=== PATIENT | female | born 1955 | race Caucasian/White ===

== ENCOUNTER 2021-02-25 15:47 | Outpatient (REF) | payer OTHER, SELFPAY ==
[2021-02-25 21:52] LABS: HCT 40.3 % (36.0-46.0); HGB 13.2 g/dL (11.2-15.7); MCH 27.3 pg (27.0-33.0); MCHC 32.8 % (32.0-36.0); MCV 83.4 fL (80-95); MPV 10.7 fL (8.0-11.0); Platelet Count 259 10^3/uL (130-400); RBC 4.83 10^6/uL (3.93-5.22); RDW 12.8 % (11.7-14.6); RDW-SD 38.7 fL; WBC 10.77 10^3/uL (4.4-10.8)
[2021-02-25 23:02] LABS: Ferritin 29 ng/mL (8-252); Magnesium 1.3 mg/dL (1.8-2.4); TSH (W/Ref FT4) < 0.01 uIU/mL (0.36-3.74)
[2021-02-25 23:20] LABS: FREE T4 1.24 ng/dL (0.76-1.46)
[2021-02-27 17:22] LABS: T3,Free 5.6 pg/mL (2.8-5.3)
[2021-02-27 17:40] LABS: T3, Total 216 ng/dL (97-169)
== END 2021-02-25 15:48 | disposition home or self-care (01) ==
LOC: NCHCN 15:47
PROVIDERS: Visit Provider Nurse Practitioner Community Health
DX: E23.0 Hypopituitarism (principal); E05.90 Thyrotoxicosis, unspecified without thyrotoxic crisis or storm; E83.42 Hypomagnesemia; E61.1 Iron deficiency; Z86.2 Personal history of diseases of the blood and blood-forming organs and certain disorders involving the immune mechanism
CPT/HCPCS: 85027; 82728; 83735; 84439; 84443; 84480; 84481

== ENCOUNTER 2021-07-05 16:54 | Outpatient (REF) | payer OTHER, SELFPAY ==
--- OUTSIDE RECORDS SUMMARY | 2021-07-05 17:04 | XMS_ITS | CCD ---
:1955 Author Care Team Providers Name Role Phone Samy VALADEZ Attending Physician Unavailable Vital Signs Unknown or Not Available. Allergies Allergy Code Allergy Type Reaction Status CODEINE 2670 Drug allergy HIVES/HYPERVENTILATION Activ e Procedures Unknown or Not Available. History of Immunizations Unknown or Not Available. Problems Problem Code Start Date Resolved Date Status TIA 176826205 Active HTN 86658745 Active Type 2 diabetes 95204123 Active mellitus Headache 97211694 Active Acute pulmonary 247171312 Active embolism Pulmonary infarction 08782906 Active Pulmonary abscess 51853762 Active Anemia of chronic 722315929 Active disorder (disorder) Paroxysmal atrial 861113941 Active fibrillation NSTEMI 865871719 Active Nausea with vomiting 11196268 Active Severe protein calorie 096350429 Activ e malnutrition Hypokalemia 19765827 Active Results FABRICE COVID RHEONIX* - Collect Date/Cm e: 05/01/2021 09:47 Test Name Code Test Result Test Units Test Ref Range SOURCE= Anterior nasal N/A Tier- EXPOSURE N/A SARS COV2 RNA: 16129-3 NEGATIVE N/A REFERENCE RAN GE: NEGAT Active Medications Medication Code Dose Units Frequency Route Modification Start Date/Time Iron 325MG 19471448001 1 TABLET DAILY ORAL 0 Oral Tablet 13:31 Prescription Detail TAKE 1 TABLET ORAL DAILY Fluconazole 150MG 496224 1 TABLET NEEDED ORAL 10/0 12/2019 Oral Tablet 13:24 Prescription Detail TAKE 1 TABLET ORAL NEEDED for vaginal itching (no more than once a week) Eliquis 5MG 6615794 5 MILLIGRAMS TWICE A ORAL 0 Oral Tablet DAY 13:23 Prescription Detail TAKE 5 MILLIGRAMS ORAL TWICE A DAY Florastor 250 [id number] 250 MILLIGRAMS TWICE A ORAL 12/2019 MG Oral DAY 13:21 Capsule Prescription Detail TAKE 250 MILLIGRAMS ORAL TWI CE A DAY Medications Administered During Visit Unknown or Not Available. Encounters Encounter Diagnosis Diagnosis Code Start Date CONTACT WITH AND SUSPECTED EXPOSURE TO COVID-19 [id number] 05/01/2021 Social History Smoking Status Code Start Date End Date Former smoker [id number] Patient Decision Aids Unknown or Not Available. Discharge Instructions You were admitted to [facility] on 05/01/2021 20:55 with a principal diagnosis of Contact with and (suspected ) exposure to COVID-19 [facility] the [facility] You were discharged from [facility] on 05/01/2021 20:55 Should you have any questions prior to d ischarge, please contact a member of your healthcare team. If you have left the ho spital and have any questions, please contact your primary care physician. Chief Complaint and Reason For Visit Unknown or Not Available. Function Status Unknown or Not Available. Plan of Care Unknown or Not Available. Referral/Transition of Care Unknown or Not Available.
--- OUTSIDE RECORDS SUMMARY | 2021-07-05 17:04 | XMS_ITS | CCD ---
:1955 Author Care Team Providers Name Role Phone Samy VALADEZ Attending Physician Unavailable Vital Signs Unknown or Not Available. Allergies Allergy Code Allergy Type Reaction Status CODEINE 2670 Drug allergy HIVES/HYPERVENTILATION Activ e Procedures Unknown or Not Available. History of Immunizations Unknown or Not Available. Problems Problem Code Start Date Resolved Date Status TIA 618356819 Active HTN 84762382 Active Type 2 diabetes 39839913 Active mellitus Headache 12596116 Active Acute pulmonary 009281964 Active embolism Pulmonary infarction 90709946 Active Pulmonary abscess 26830477 Active Anemia of chronic 199682704 Active disorder (disorder) Paroxysmal atrial 787065717 Active fibrillation NSTEMI 551344492 Active Nausea with vomiting 83520503 Active Severe protein calorie 097144853 Activ e malnutrition Hypokalemia 19307312 Active Results FABRICE COVID RHEONIX* - Collect Date/Cm e: 06/06/2021 09:56 Test Name Code Test Result Test Units Test Ref Range Tier- 47442-1 EXPOSURE N/A SARS COV2 RNA: 30019-0 NEGATIVE N/A REFERENCE RAN GE: NEGAT Active Medications Medication Code Dose Units Frequency Route Modification Start Date/Time Iron 325MG 99447381399 1 TABLET DAILY ORAL 0 Oral Tablet 13:31 Prescription Detail TAKE 1 TABLET ORAL DAILY Fluconazole 150MG 999238 1 TABLET NEEDED ORAL 0 12/2019 Oral Tablet 13:24 Prescription Detail TAKE 1 TABLET ORAL NEEDED for vaginal itching (no more than once a week) Eliquis 5MG 0580774 5 MILLIGRAMS TWICE A ORAL 0 Oral Tablet DAY 13:23 Prescription Detail TAKE 5 MILLIGRAMS ORAL TWICE A DAY Florastor 250 76045036979 250 MILLIGRAMS TWICE A ORAL 12/2019 MG Oral DAY 13:21 Capsule Prescription Detail TAKE 250 MILLIGRAMS ORAL TWI CE A DAY Medications Administered During Visit Unknown or Not Available. Encounters Encounter Diagnosis Diagnosis Code Start Date CONTACT WITH AND SUSPECTED EXPOSURE TO COVID-19 [id number] 06/06/2021 Social History Smoking Status Code Start Date End Date Former smoker [id number] Patient Decision Aids Unknown or Not Available. Discharge Instructions You were admitted to [facility] on 06/06/2021 19:46 with a principal diagnosis of Contact with and (suspected ) exposure to COVID-19 You had the following tests done: [facility] COVID RHEONIX* You were discharged from [facility] on 06/06/2021 19:46 Should you have any questions prior to [...]
--- OUTSIDE RECORDS SUMMARY | 2021-07-05 17:05 | XMS_ITS | CCD ---
:1955 Author Care Team Providers Name Role Phone AMY BROUSSARD Attending Physician Unavailable Vital Signs Unknown or Not Available. Allergies Allergy Code Allergy Type Reaction Status CODEINE 2670 Drug allergy HIVES/HYPERVENTILATION Activ e Procedures Unknown or Not Available. History of Immunizations Unknown or Not Available. Problems Problem Code Start Date Resolved Date Status TIA 231778726 Active HTN 33524499 Active Type 2 diabetes 04094426 Active mellitus Headache 75930405 Active Acute pulmonary 262698362 Active embolism Pulmonary infarction 18721478 Active Pulmonary abscess 64282881 Active Anemia of chronic 827258493 Active disorder (disorder) Paroxysmal atrial 705475762 Active fibrillation NSTEMI 543481245 Active Nausea with vomiting 10882529 Active Severe protein calorie 259610090 Activ e malnutrition Hypokalemia 96140011 Active Results COMPREHENSIVE METABOLIC PANEL (CMP) - Co llect Date/Time: 04/09/2021 11:40 Test Name Code Test Result Test Units Test Ref Range GLUCOSE 2345-7 143 mg/dL L=70 H=11 6 BUN 3094-0 10 mg/dL L=6 H=25 CREATININE 2160-0 1.00 mg/dL L=0.51 H=0.95 SODIUM SERUM 2951-2 145 mmol/L L=136 H=14 5 POTASSIUM SERUM 2823-3 3.7 mmol/L L=3.4 H =5.2 CHLORIDE SERUM 2075-0 109 mmol/L L=96 H= 110 CARBON DIOXIDE (CO2) 2028-9 25 mmol/L L=22 H=34 ANION GAP 85805-4 11.1 mmol/L CALCIUM SERUM 90254-1 9.4 mg/dL L=8.2 H=10.2 BILIRUBIN TOTAL 1975-2 0.3 mg/dL L=0.0 H =1.3 ALK. PHOS. 6768-6 111 U/L L=46 H=11 6 SGOT (AST) 1920-8 15 U/L L=15 H=37 SGPT (ALT) 1742-6 15 U/L L=12 H=78 TOTAL PROTEIN 2885-2 7.9 gm/dL L=6.0 H=8 .0 ALBUMIN 1751-7 3.7 gm/dL L=3.4 H=5. 0 AGE 65 years eGFR (non-Afr.Amer.) 10271-8 55 mL/min eGFR (Afr-Micronesian) 55611-6 67 mL/min FREE THYROXINE (FREE T4)* - Collect Date /Time: 04/09/2021 11:40 Test Name Code Test Result Test Units Test Ref Range FREE THYROXINE 3024-7 0.66 ng/dL L=0.76 H=1.46 TSH THYROID STIMULATING HORMONE* - Colle ct Date/Time: 04/09/2021 11:40 Test Name Code Test Result Test Units Test Ref Range TSH 3014-8 0.340 uIU/mL L=0.360 H=3. 740 THYROID STIMULATING IMMUNOGLOBULIN - Col lect Date/Time: 04/09/2021 11:40 Test Name Code Test Result Test Units Test Ref Range Thyroid-Stimulatin 53461-2 1.5 N/A <=1.3 gImmunoglob, S Active Medications Medication Code Dose Units Frequency Route Modification Start Date/Time Iron 325MG 29227627512 1 TABLET DAILY ORAL 0 Oral Tablet 13:31 Prescription Detail TAKE 1 TABLET ORAL DAILY Fluconazole 150MG 041709 1 TABLET NEEDED ORAL 12/2019 Oral Tablet 13:24 Prescription Detail TAKE 1 TABLET ORAL NEEDED for vaginal itching (no more than once a week) Eliquis 5MG 7435641 5 MILLIGRAMS TWICE A ORAL 0 Oral Tablet DAY 13:23 Prescription Detail TAKE 5 MILLIGRAMS ORAL TWICE A DAY Florastor 250 31672143207 250 MILLIGRAMS TWICE A ORAL 12/2019 MG Oral DAY 13:21 Capsule Prescription Detail TAKE 250 MILLIGRAMS ORAL TWI CE A DAY Medications Administered During Visit Unknown or Not Available. Encounters Encounter Diagnosis Diagnosis Code Start Date Thyrotoxicosis 04689230 04/09/2021 Social History Smoking Status Code Start Date End Date Former smoker 3492412 Patient Decision Aids Unknown or Not Available. Discharge Instructions You were admitted to [facility] on 04/09/2021 11:23 with a principal diagnosis of Thyrotoxicosis, unspecified without thyrotoxic crisis or storm You had the following tests done: COMPREHENSIVE METABOLIC PANEL (CMP) FREE THYROXINE (FREE T4)* THYROID STIMULATING IMMUNOGLOBULIN TSH THYROID STIMULATING HORMONE* You were discharged from [facility] on 04/09/2021 11:23 Should you have any questions prior to [...]
--- OUTSIDE RECORDS SUMMARY | 2021-07-05 17:05 | XMS_ITS | CCD ---
:1955 Author Care Team Providers Name Role Phone BERNARDINO Dia Attending Physician Unavailable Vital Signs Unknown or Not Available. Allergies Allergy Code Allergy Type Reaction Status CODEINE 2670 Drug allergy HIVES/HYPERVENTILATION Activ e Procedures Unknown or Not Available. History of Immunizations Unknown or Not Available. Problems Problem Code Start Date Resolved Date Status TIA 685279387 Active HTN 18961872 Active Type 2 diabetes 99650325 Active mellitus Headache 65104779 Active Acute pulmonary 516506584 Active embolism Pulmonary infarction 13083003 Active Pulmonary abscess 36274604 Active Anemia of chronic 411837762 Active disorder (disorder) Paroxysmal atrial 306213637 Active fibrillation NSTEMI 369653175 Active Nausea with vomiting 01671994 Active Severe protein calorie 114943663 Activ e malnutrition Hypokalemia 16917022 Active Results FABRICE COVID RHEONIX* - Collect Date/Cm e: 04/20/2021 11:03 Test Name Code Test Result Test Units Test Ref Range SOURCE= Anterior nasal N/A Tier- PRE-OP N/A SARS COV2 RNA: 01599-0 NEGATIVE N/A REFERENCE RAN GE: NEGAT Active Medications Medication Code Dose Units Frequency Route Modification Start Date/Time Iron 325MG 74895157358 1 TABLET DAILY ORAL 0 Oral Tablet 13:31 Prescription Detail TAKE 1 TABLET ORAL DAILY Fluconazole 150MG 797725 1 TABLET NEEDED ORAL 10/0 12/2019 Oral Tablet 13:24 Prescription Detail TAKE 1 TABLET ORAL NEEDED for vaginal itching (no more than once a week) Eliquis 5MG 8893213 5 MILLIGRAMS TWICE A ORAL 0 Oral Tablet DAY 13:23 Prescription Detail TAKE 5 MILLIGRAMS ORAL TWICE A DAY Florastor 250 27053985901 250 MILLIGRAMS TWICE A ORAL 12/2019 MG Oral DAY 13:21 Capsule Prescription Detail TAKE 250 MILLIGRAMS ORAL TWI CE A DAY Medications Administered During Visit Unknown or Not Available. Encounters Encounter Diagnosis Diagnosis Code Start Date Pre-surgery testing [id number] 04/20/2021 Social History Smoking Status Code Start Date End Date Former smoker 9572986 Patient Decision Aids Unknown or Not Available. Discharge Instructions You were admitted to [facility] on 04/20/2021 15:51 with a principal diagnosis of Encounter for preprocedural laboratory examination [facility] the [facility] You were discharged from [facility] on 04/20/2021 15:51 Should you have any questions prior to [...]
--- OUTSIDE RECORDS SUMMARY | 2021-07-05 17:05 | XMS_ITS | CCD ---
:1955 Author Care Team Providers Name Role Phone Dia LEBRON Attending Physician Unavailable Vital Signs Vital Sign Value Unit Date/Time Recent/Initial? BP Systolic 130 mmHg 04/22/2021 16:00 Initial VS BP Diastolic 71 mmHg 04/22/2021 16:00 Initial VS Respiratory Rate 12 bpm 04/22/2021 16:00 Initial VS Heart Rate 76 bpm 04/22/2021 16:00 Initial VS O2 % BldC Oximetry 97 % 04/22/2021 16:00 Initi al VS Body Temperature 36 degrees 04/22/2021 16:00 Initial VS Allergies Allergy Code Allergy Type Reaction Status CODEINE 2670 Drug allergy HIVES/HYPERVENTILATION Activ e Procedures Procedure Code Procedure Type Date Colsc Flx w/Rmvl Of Tumor Polyp 27303 CPT 04/22/2021 Lesion Snare Tq History of Immunizations Unknown or Not Available. Problems Problem Code Start Date Resolved Date Status TIA 274880036 Active HTN 83446586 Active Type 2 diabetes 18893948 Active mellitus Headache 06059550 Active Acute pulmonary 355469659 Active embolism Pulmonary infarction 72272803 Active Pulmonary abscess 49406304 Active Anemia of chronic 678134916 Active disorder (disorder) Paroxysmal atrial 559307987 Active fibrillation NSTEMI 976714636 Active Nausea with vomiting 23397015 Active Severe protein calorie 251832289 Activ e malnutrition Hypokalemia 22759648 Active Results Unknown or Not Available. Active Medications Medication Code Dose Units Frequency Route Modification Start Date/Time Iron 325MG 42172443797 1 TABLET DAILY ORAL 0 Oral Tablet 13:31 Prescription Detail TAKE 1 TABLET ORAL DAILY Fluconazole 150MG 528982 1 TABLET NEEDED ORAL 12/2019 Oral Tablet 13:24 Prescription Detail TAKE 1 TABLET ORAL NEEDED for vaginal itching (no more than once a week) Eliquis 5MG 5512463 5 MILLIGRAMS TWICE A ORAL 0 Oral Tablet DAY 13:23 Prescription Detail TAKE 5 MILLIGRAMS ORAL TWICE A DAY Florastor 250 58321897738 250 MILLIGRAMS TWICE A ORAL 12/2019 MG Oral DAY 13:21 Capsule Prescription Detail TAKE 250 MILLIGRAMS ORAL TWI CE A DAY Medications Administered During Visit Unknown or Not Available. 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 Discharge Instructions You were admitted to [facility] on 04/22/2021 13:04 with a principal diagnosis of Benign neoplasm of ascendin g colon You had the following procedures done: Colsc Flx w/Rmvl Of Tumor Polyp Lesion Snare Tq You were discharged from [facility] on 04/22/2021 08:00 Should you have any questions prior to [...]
--- OUTSIDE RECORDS SUMMARY | 2021-07-05 17:05 | XMS_ITS | CCD ---
:1955 Author Care Team Providers Name Role Phone ROZENDAAL Attending Physician Unavailable Vital Signs Unknown or Not Available. Allergies Allergy Code Allergy Type Reaction Status CODEINE 2670 Drug allergy HIVES/HYPERVENTILATION Activ e Procedures Unknown or Not Available. History of Immunizations Unknown or Not Available. Problems Problem Code Start Date Resolved Date Status TIA 923592780 Active HTN 92613639 Active Type 2 diabetes 19816596 Active mellitus Headache 70552370 Active Acute pulmonary 348235434 Active embolism Pulmonary infarction 93068687 Active Pulmonary abscess 67152806 Active Anemia of chronic 019837583 Active disorder (disorder) Paroxysmal atrial 771330244 Active fibrillation NSTEMI 042511756 Active Nausea with vomiting 43182462 Active Severe protein calorie 298510862 Activ e malnutrition Hypokalemia 05255711 Active Results MAGNESIUM SERUM - Collect Date/Time: 13:26 Test Name Code Test Result Test Units Test Ref Range MAGNESIUM 03375-1 1.4 mg/dL L=1.8 H=2. 4 Active Medications Medication Code Dose Units Frequency Route Modification Start Date/Time Iron 325MG 03652769639 1 TABLET DAILY ORAL 0 Oral Tablet 13:31 Prescription Detail TAKE 1 TABLET ORAL DAILY Fluconazole 150MG 414844 1 TABLET NEEDED ORAL 12/2019 Oral Tablet 13:24 Prescription Detail TAKE 1 TABLET ORAL NEEDED for vaginal itching (no more than once a week) Eliquis 5MG 9750903 5 MILLIGRAMS TWICE A ORAL 0 Oral Tablet DAY 13:23 Prescription Detail TAKE 5 MILLIGRAMS ORAL TWICE A DAY Florastor 250 24418917097 250 MILLIGRAMS TWICE A ORAL 12/2019 MG Oral DAY 13:21 Capsule Prescription Detail TAKE 250 MILLIGRAMS ORAL TWI CE A DAY Medications Administered During Visit Unknown or Not Available. Encounters Encounter Diagnosis Diagnosis Code Start Date Vitamin D deficiency 88668829 10/22/2020 Social History Smoking Status Code Start Date End Date Former smoker 8627416 Patient Decision Aids Unknown or Not Available. Discharge Instructions You were admitted to [facility] on 10/22/2020 13:16 with a principal diagnosis of Vitamin D deficiency, unspe cified You had the following tests done: MAGNESIUM SERUM You were discharged from [facility] on 10/22/2020 13:16 Should you have any questions prior to [...]
--- OUTSIDE RECORDS SUMMARY | 2021-07-05 17:05 | XMS_ITS | CCD ---
:1955 Author Care Team Providers Name Role Phone Fab WOODALL Attending Physician Unavailable Gaurav HUANG Er Physician 1 Unavailable B. Registered Nurse Unavailable Vital Signs Vital Sign Value Unit Date/Time Recent/Initial? BMI (Body Mass Index) 33.01 kg/m^2 04/23/2021 15:40 In itial VS Weight Measured 169 lbs 04/23/2021 15:40 Initial VS Height 60 in 04/23/2021 15:40 Initial VS BSA (Body Surface 1.8 m^2 04/23/2021 15:40 Initia l VS Area) BP Systolic 130 mmHg 04/23/2021 15:40 Initial VS BP Diastolic 84 mmHg 04/23/2021 15:40 Initial VS Respiratory Rate 18 bpm 04/23/2021 15:40 Initial VS Heart Rate 80 bpm 04/23/2021 15:40 Initial VS O2 % BldC Oximetry 100 % 04/23/2021 15:40 Initi al VS Body Temperature 36.7 degrees 04/23/2021 15:40 Initial VS Allergies Allergy Code Allergy Type Reaction Status CODEINE 2670 Drug allergy HIVES/HYPERVENTILATION Activ e Procedures Unknown or Not Available. History of Immunizations Unknown or Not Available. Problems Problem Code Start Date Resolved Date Status TIA 004258518 Active HTN 29371650 Active Type 2 diabetes 14027425 Active mellitus Headache 65286854 Active Acute pulmonary 876746796 Active embolism Pulmonary infarction 18324718 Active Pulmonary abscess 21376262 Active Anemia of chronic 143078728 Active disorder (disorder) Paroxysmal atrial 132529878 Active fibrillation NSTEMI 592218774 Active Nausea with vomiting 29542688 Active Severe protein calorie 958614999 Activ e malnutrition Hypokalemia 54113487 Active Results Unknown or Not Available. Active Medications Unknown or Not Available. Medications Administered During Visit Medication Dose Units Frequency Route Date/Time of Last Dose ACETAMINOPHEN 975 MG X1 PO 04/23/2021 TABLET: 325MG 17:41 Encounters Encounter Diagnosis Diagnosis Code Start Date Headache, unspecified R519 04/23/2021 Social History Smoking Status Code Start Date End Date Former smoker 0756964 Patient Decision Aids Unknown or Not Available. Discharge Instructions You were admitted to [facility] on 04/23/2021 15:25 with a principal diagnosis of Headache, unspecified You were discharged from [facility] on 04/23/2021 18:39 Should you have any questions prior to d ischarge, please contact a member of your healthcare team. If you have left the ho spital and have any questions, please contact your primary care physician. Chief Complaint and Reason For Visit Chief Complaint Date of Onset FALL Function Status Unknown or Not Available. Plan of Care Unknown or Not Available. Referral/Transition of Care Unknown or Not Available.
[2021-07-05 21:55] LABS: Iron 68 ug/dL (50-170)
[2021-07-05 22:15] LABS: Folate 15.1 ng/mL (8.6-20.0); Magnesium 1.2 mg/dL (1.8-2.4); TSH (W/Ref FT4) 3.33 uIU/mL (0.36-3.74); Vitamin B12 253 pg/mL (193-986)
== END 2021-07-05 16:55 | disposition home or self-care (01) ==
LOC: NCHCN 16:54
PROVIDERS: Visit Provider Registered Nurse
DX: I48.0 Paroxysmal atrial fibrillation (principal); I10 Essential (primary) hypertension; E11.9 Type 2 diabetes mellitus without complications; E05.90 Thyrotoxicosis, unspecified without thyrotoxic crisis or storm
CPT/HCPCS: 82306; 82607; 82746; 83540; 83735; 84443

== ENCOUNTER 2021-12-12 14:11 | Outpatient (REF) | payer MEDICARE, SELFPAY ==
[2021-12-12 21:09] LABS: Hemoglobin A1C 6.6 % (<5.7)
[2021-12-12 21:19] LABS: TSH (W/Ref FT4) 2.96 uIU/mL (0.36-3.74)
== END 2021-12-12 14:12 | disposition home or self-care (01) ==
LOC: NCHCN 14:11
PROVIDERS: Visit Provider Registered Nurse
DX: E05.90 Thyrotoxicosis, unspecified without thyrotoxic crisis or storm (principal); R73.03 Prediabetes
CPT/HCPCS: 83036; 84443

== ENCOUNTER 2022-06-19 12:44 | Outpatient (REF) | payer MEDICARE, SELFPAY ==
[2022-06-18 21:56] LABS: TSH 1.01 uIU/mL (0.36-3.74)
[2022-06-18 22:16] LABS: Hemoglobin A1C 7.2 % (<5.7)
== END 2022-06-19 12:45 | disposition home or self-care (01) ==
LOC: NCHCN 12:44
PROVIDERS: Visit Provider Registered Nurse
DX: R73.03 Prediabetes (principal); E07.9 Disorder of thyroid, unspecified
CPT/HCPCS: 83036; 84443

== ENCOUNTER 2022-10-02 17:01 | Outpatient (REF) | payer MEDICARE, SELFPAY ==
[2022-10-02 20:28] LABS: COMMENT (LAB VIEW ONLY) 40.78 mg/dL; Microalb ug/mg Crea 54.2 ug/mg Cr
== END 2022-10-02 17:02 | disposition home or self-care (01) ==
LOC: NCHCN 17:01
PROVIDERS: Visit Provider Registered Nurse
DX: E11.9 Type 2 diabetes mellitus without complications (principal)
CPT/HCPCS: 82043; 82570